=== PATIENT | male | born 1970 | race Caucasian/White ===

== ENCOUNTER 2017-06-28 09:50 | Emergency (ER) | payer OTHER ==
--- NOTE | 2017-06-28 10:24 | ERPHSYRPT ---
- History of Present Illness Time Seen by Provider: 06/28/17 09:53 Source: patient Patient Subjective Stated Complaint: Pt states "I had neck disection surgery last at [facility]. I noticed some swelling last night and I am not sure if this is normal or not." Triage Nursing Assessment: Pt alert and oriented X 3, skin pwd. PT has an incision with sutures in place, incision clean, no drainage, no redness, swelling noted. Physician History: CC: neck swelling Hx: 47 y/o patient of Dr Caraballo had radical neck dissection at [facility] last (4 days ago). He awoke with left tongue movement problem. He went home. Dry mouth. Now has increased swelling in the neck and feels like a bull frog. Called office and was told to come to ER. He has no real difficulty breathing. Some difficulty swallowing but not a lot worse. No fever or chills. No other complaints. Severity: moderate Allergies/Adverse Reactions: No Known Drug Allergies Allergy (Verified 05/20/14 17:38) Home Medications: Hydrocodone/Acetaminophen [Hydrocodone-Acetamin 5-325 mg] 1 tab PO DAILY [History] Hx Tetanus, Diphtheria Vaccination/Date Given: Yes Hx Influenza Vaccination/Date Given: No Hx Pneumococcal Vaccination/Date Given: No Immunizations Up to Date: Yes - Review of Systems Constitutional: No Fever, No Chills Eyes: No Symptoms Ears, Nose, & Throat: Throat Swelling (neck), Painful Swallowing Respiratory: No Cough, No Dyspnea Cardiac: No Chest Pain Abdominal/Gastrointestinal: No Abdominal Pain, No Nausea, No Vomiting Skin: No Rash Neurological: No Headache All Other Systems: Reviewed and Negative - Past Medical History Pertinent Past Medical History: Yes Neurological History: No Pertinent History ENT History: No Pertinent History Cardiac History: No Pertinent History Respiratory History: No Pertinent History Endocrine Medical History: No Pertinent History Musculoskeletal History: Fractures GI Medical History: No Pertinent History History: No Pertinent History Psycho-Social History: No Pertinent History Male Reproductive Disorders: No Pertinent History 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4 F 06/28/17 09:54 Pulse Rate 108 H 06/28/17 09:54 Respiratory Rate 18 06/28/17 09:54 Blood Pressure 122/88 06/28/17 09:54 O2 Sat by Pulse Oximetry 98 06/28/17 09:54 Pain Scale Pain Intensity 0 - Physical Exam General Appearance: alert Eye Exam: PERRL/EOMI Ears, Nose, Throat Exam: moist mucous membranes Neck Exam: other (the O-P is open, the left tongue appears a little more swollen than right. He has large horizontal radical neck incision. No drng or erythema. There is some bullfrog swelling of the neck worse on the right.) Respiratory Exam: normal breath sounds Cardiovascular Exam: regular rate/rhythm Gastrointestinal/Abdomen Exam: soft, No tenderness, No distention Extremity Exam: normal inspection, normal range of motion Neurologic Exam: alert, oriented x 3, cooperative, layup worker II-XII nml as tested, sensation nml, No motor deficits Skin Exam: warm, dry SpO2 Interpretation: normal SpO2: 98 Oxygen Delivery: Room Air - Course Nursing assessment & vital signs reviewed: Yes Ordered Tests: Active Orders 24 hr Category Date Time Status IV Insertion STAT Care 06/28/17 10:01 Active NPO (ED) STAT Care 06/28/17 10:01 Active NECK WITH CONTRAST [CT] Stat Exams 06/28/17 10:02 Completed BMP Stat Lab 06/28/17 10:15 Completed CBC W DIFF Stat Lab 06/28/17 10:15 Completed Manual Differential NC Stat Lab 06/28/17 10:15 Completed Lab/Rad Data: Laboratory Result Diagrams 06/28/17 10:15 06/28/17 10:15 Laboratory Results 06/28/17 06/28/17 Range/Units 10:15 10:15 WBC 7.6 (4.0-10.5) K/mm3 RBC 4.94 (4.1-5.6) M/mm3 Hgb 14.9 (12.5-18.0) gm/dl Hct 44.3 (42-50) % MCV 89.7 (78-100) fl MCH 30.2 (26-32) pg MCHC 33.6 (32-36) g/dl RDW 14.6 H (11.5-14.0) % Plt Count 246 (150-450) K/mm3 MPV 10.1 H (6-9.5) fl Absolute Neutrophils 5.9 (1.4-6.9) Segmented Neutrophils 78 H (36.-66.) % Lymphocytes (Manual) 14 L (24-44) % Monocytes (Manual) 6 (0.0-12.0) % Eosinophils (Manual) 2 (0.00-3.0) % Differential Comment NORMAL Platelet Estimate NORMAL (NORMAL) Sodium 137 (136-145) mEq/L Potassium 3.4 L (3.5-5.1) mEq/L Chloride 98 (98-107) mEq/L Carbon Dioxide 28.1 (21-32) mEq/L Anion Gap 14.4 (5-15) MEQ/L BUN 12 (9-20) mg/dL Creatinine 0.82 (0.55-1.30) mg/dl Estimated GFR > 60 ML/MIN Glucose 103 (70-110) MG/DL Calcium 9.4 (8.5-10.1) mg/dL - Progress Progress Note: 06/28/17 11:[address] sent to [facility]. Report and labs faxed to Dr Caraballo. Called his office and spoke to Naila Franco who will page Dr Caraballo to review. Pt stable at this time. 06/28/17 14:25 [address] and Dr munoz reviewed CT film images. Pt has no dyspnea or stridor. They advised release for office follow up. Counseled pt/family regarding: lab results, diagnosis, need for follow-up, rad results - Departure Time of Disposition: 14:26 Departure Disposition: Home Clinical Impression: post operative neck swelling, Head and neck cancer Condition: Stable Critical Care Time: No Referrals: SHELDON CARABALLO [NON-STAFF PHY W/O PRIVILEGES] - Instructions: Radical Neck Dissection (DC) Additional Instructions: Return or call Dr Caraballo for trouble breathing or swallowing. Normal post op care. Follow up with Dr Caraballo.
[2017-06-28 10:25] LABS: Hematocrit 44.3 % (42-50); Hemoglobin 14.9 gm/dl (12.5-18.0); Mean Cell Volume 89.7 fl (78-100); Mean Corpuscular Hemoglobin 30.2 pg (26-32); Mean Corpuscular Hgb Concent. 33.6 g/dl (32-36); Mean Platelet Volume 10.1 fl (6-9.5); Platelet Count 246 K/mm3 (150-450); Red Blood Count 4.94 M/mm3 (4.1-5.6); Red Cell Distribution Width 14.6 % (11.5-14.0); White Blood Count 7.6 K/mm3 (4.0-10.5)
[2017-06-28 10:36] LABS: Total Cells Counted 100
[2017-06-28 10:38] LABS: ABSOLUTE NEUTROPHILS 5.9 (1.4-6.9); Eosinophil 2 % (0.00-3.0); Lymphocytes 14 % (24-44); Monocyte 6 % (0.0-12.0); Neutrophils 78 % (36.-66.); Platelet Estimate NORMAL (NORMAL)
[2017-06-28 10:43] LABS: ANION GAP 14.4 MEQ/L (5-15); BLOOD UREA NITROGEN 12 mg/dL (9-20); CHLORIDE 98 mEq/L (98-107); Calcium 9.4 mg/dL (8.5-10.1); Carbon Dioxide 28.1 mEq/L (21-32); Creatinine 1 0.82 mg/dl (0.55-1.30); Glucose 103 MG/DL (70-110); Potassium 3.4 mEq/L (3.5-5.1); SODIUM 137 mEq/L (136-145)
--- NOTE | 2017-06-28 11:43 | XRAY ---
Indication: Neck swelling. Status post neck surgery June 24.8 for tongue cancer with reva dissection. Multiple contiguous axial images obtained through the neck using 80 cc Isovue 370 contrast. Sagittal and coronal reformatted images obtained. Comparison: None Base of the tongue demonstrates asymmetry with left sided fullness. There is also mild anterior cutaneous/subcutaneous soft tissue swelling/edema presumed postoperative. Several tiny air bubbles seen in the deep anterior soft tissues, adjacent to the left sternocleidomastoid muscle, and lesser degree supraclavicular region bilaterally also presumed postoperative. Gas-forming bacterial infection not completely excluded. No walled off fluid collection or pathologic cervical/supraclavicular lymphadenopathy. Thyroid gland enhances homogeneously. Major arteries and veins are normal in course and caliber. Supra-and infraglottic airway are widely patent. Normal epiglottis. Visualized cervical spine intact with minimal C4-C6 anterior endplate spurring. Partially visualized left-sided Port-A-Cath. Base of the brain and lung apices unremarkable. Impression: 1. Anterior neck soft tissue swelling/edema and deep soft tissue air bubbles presumed postoperative. Gas-forming bacterial infection not completely excluded in the right clinical setting. 2. Asymmetry involving the base of the tongue either postoperative or related to known tongue cancer. Comparison studies would be of benefit. 3. No pathologic cervical/supraclavicular lymphadenopathy. CT DI 39.83
[2017-06-28 11:51] VITALS: O2SAT 98
[2017-06-28 14:22] VITALS: BP 108/78
[2017-06-28 14:23] VITALS: PULSE 82
== END 2017-06-28 14:40 | disposition home or self-care (01) ==
LOC: ED 09:50
DX: R22.1 Localized swelling, mass and lump, neck (principal); R22.0 Localized swelling, mass and lump, head; C02.9 Malignant neoplasm of tongue, unspecified; Z98.890 Other specified postprocedural states
CPT/HCPCS: 36000; 36415; 70491; 80048; 85025; 99284